=== PATIENT | female | born 1955 | race Caucasian/White ===

== ENCOUNTER 2017-05-06 04:19 | Inpatient (IN) | payer MEDICARE, OTHER ==
[~2017-05-06] VITALS: Ht 167.6 cm; Wt 52.0 kg
[~2017-05-06 04:19] MED LIST: ALEVE220 MG PO; ATIVAN1 MG PO; DULCOLAX5 MG PO; IMURAN50 MG PO; LOMOTIL TABLET1 EACH PO; MAPAP325 MG PO; OXYCODON-ACETA1 EAC2 PO; ULTRAM50 MG PO; ZOFRAN8 MG PO
--- NOTE | 2017-05-06 07:15 | NUR ---
RECIEVED PT PER STRETCHER DIRECT ADMISSION FROM [facility]. PT IS AWAKE ALERT. STATES IS HAVING SOME ABD PAIN. ALSO HAS TAILBONE AND BACK PAIN FROM RECENT FALL. HAS PACKING IN PLACE L NARE. UP TO BSC TO VOID. LAB DRAWN FROM [facility] IS ACCESSED, AMBULANCE CREW REPORTS THAT SHE HAS NEVER BEEN ABLE TO DRAW BLOOD FROM IT. REPORT TO DAY SHIFT.
--- NOTE | 2017-05-06 07:19 | NUR ---
LIUDMILA NY WAS CALLED AT 0640 TO REPORT VS.
--- NOTE | 2017-05-06 08:00 | NUR ---
ADMISSION COMPLETE. TALKED WITH PATIENT AND PATIENT FAMILY ABOUT PLAN OF CARE. IS UNDERSTANDING. IVF INFUSING AT 125 ML/HR. DENEIS ABD PAIN, C/O MILD LOWER BACK PAIN/COCCYX PAIN. DENIES NEED FOR PAIN MEDICATION. IN ROOM. NO ACTIVE BLEEDING NOTED FROM NOSE. LEFT NARE IS PACKED. DR. NY HAS SEEN PATIENT.
--- NOTE | 2017-05-06 09:20 | NUR ---
PERCOCET 1 GIVEN FOR BACK/COCCYX PAIN. IS SOMEWHAT TEARY.
--- NOTE | 2017-05-06 10:00 | NUR ---
ATTEMPTED TO DRAW BLOOD FROM PORT-A-CATH. UNABLE. PATIENT STATES THAT MOST OF THE TIME BLOOD IS NOT ABLE TO DRAWN FROM THIS PORT, BUT STILL IS USED. T&C DRAWN PER BALL ASSEMBLER. STATES PAIN IS LESS AFTER PERCOCET GIVEN. PATIENT AND AWARE OF SURGICAL CONSULT. NO ACTIVE BLEEDING NOTED. DENIES NEED FOR ATIVAN.
--- NOTE | 2017-05-06 11:45 | NUR ---
DR. TEIXEIRA HERE TO SEE PATIENT. [id number] RECIEVED.
--- NOTE | 2017-05-06 12:00 | NUR ---
ASSESSMENT DONE. DENIES NEED FOR REPEAT PAIN MEDICATION. RESTFUL. WILL HAVE BOWEL PREP THIS AFTERNOON.
--- NOTE | 2017-05-06 13:12 | NUR ---
SURGICAL PERMIT SIGNED BY .
--- NOTE | 2017-05-06 13:50 | NUR ---
BOWEL PREP STARTED
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
--- NOTE | 2017-05-06 16:00 | NUR ---
ASSESSMENT DONE. IS VERY WEAK.
--- NOTE | 2017-05-06 16:16 | NUR ---
PERCOCET GIVEN FOR C/O LOWER BACK /COCCYX PAIN.
--- NOTE | 2017-05-06 16:25 | NUR ---
HAD EMESIS OF 150 YELLOW CONTENTS, PILL NOTED IN EMESIS.
--- NOTE | 2017-05-06 16:30 | NUR ---
ZOFRAN 4 MG IV GIVEN FOR NAUSEA.
--- NOTE | 2017-05-06 16:31 | NUR ---
ATIVAN 0.5 MG IV GIVEN.
--- NOTE | 2017-05-06 17:00 | NUR ---
RESTFUL AFTER ATIVAN
--- NOTE | 2017-05-06 17:45 | NUR ---
DR. TEIXEIRA UPDATED ON PATIENT, IS AWARE PATIENT IS NOT TAKING BOWEL PREP WELL. NO FUTHER ORDERS. DR CRUZ HERE TO SEE PATIENT.
--- NOTE | 2017-05-06 20:00 | NUR ---
DOZING, AWAKENS EASILY. IS PAINFUL TAILBONE AREA. ON BED FRAGOSO TO VOID AND PASS SOME CLOTS. PT HAS DIFFICULTY MOVING DUE TO PAIN
--- NOTE | 2017-05-06 20:52 | NUR ---
DR NY CALLED RE TEMP AND PT CONDITION ORDERS RECIEVED.
--- NOTE | 2017-05-06 20:56 | CONS ---
[facility] [address] [place], [place] [address] Signed DATE OF CONSULTATION: 05/06/2017 CHIEF COMPLAINT: Coffee-ground emesis and bright red blood per rectum. HISTORY OF PRESENT ILLNESS: Karen is a 62-year-old female, who presented earlier this year with pain in her upper abdomen. X-rays revealed metastatic disease to both sides of her liver and a lesion in the right colon. She ended up with a colonoscopy with Dr. Teague. This confirmed a colon cancer in the right colon. She then underwent a right colectomy in August 2016 with placement of a Port-A-Cath. She did well after the surgery and she has been on our chemotherapy. She mentioned a PET scan earlier in the month that seemed to suggest that her liver mets had shrunk quite a bit with her chemotherapy. She ended up going to [facility] yesterday with a bloody nose. She underwent packing and that improved. Whether or not she had actually a coffee-ground emesis, is hard to know. She told me she was trying not to swallow all that blood. She has also had some bright red blood per rectum. Consequently, she was transferred up to our hospital service. I was asked to see Karen environmental technical officer as a general surgeon environmental technical officer. In the meantime, she has been in our ICU and seems to be doing well. PAST MEDICAL HISTORY: Colon cancer in August 2016 with liver mets, myasthenia gravis, T12 compression fracture from a fall several weeks ago. PAST SURGICAL HISTORY: A right colectomy in [address] Teague along with a Port-A-Cath placement in the left subclavian vein and a prior cholecystectomy. SOCIAL HISTORY: She does not smoke or drink to my knowledge. Her is Norberto at [phone]. Their son, Thaddeus, lives with him at [phone] with the 2 grand children. They also have a son, Yan. PRIMARY CARE PROVIDER: Aftab Saenz MD MEDICAL ONCOLOGIST: Justo Hollins MD SURGEON: Domingo Teague MD CODE STATUS: Electronically Signed By: OLIVIA TEIXEIRA MD 05/06/172055 PATIENT NAME: KAREN DECKER CONSULTATION DATE OF : 55 PHYSICIAN: OLIVIA TEIXEIRA MD REPORT #: [id number] REPORT IS CONFIDENTIAL AND NOT TO BE RELEASED WITHOUT AUTHORIZATION [facility] [address] [place], [place] [address] Signed She is do not intubate and also a limited code. FAMILY HISTORY: Sister had ovarian cancer and a cousin has colon cancer. REVIEW OF SYSTEMS: She fell several weeks ago and suffered a T12 compression fracture. ALLERGIES: Morphine and doxycycline. MEDICATIONS: Aleve, tramadol, lorazepam, Zofran, Lomotil, Dulcolax, Percocet 7.5, and Tylenol. PHYSICAL EXAMINATION: VITAL SIGNS: Blood pressure is 115/66, heart rate is 107, respiratory rate 20, and temperature is 97.6. She is 99% on room air. She is 5 feet 6 inches. A 52 kg. GENERAL: Karen is a 62-year-old female, who appears elderly. HEENT: She clearly has a packing in her left naris with some dried blood around her nose and her lips. RESPIRATORY SYSTEM: Her lungs are generally clear to auscultation. HEART: Tachycardic. ABDOMEN: Soft and flat. There is no incisional hernia. I did not specifically feel for the liver or spleen. LABORATORIES: Her white blood cell count 17.3, hemoglobin 11.7, and neutrophils 86. Her BUN 17, creatinine 0.7, total bilirubin 1.3, AST 48, ALT 30, alkaline phosphatase 316, and her albumin is 2.2. RADIOGRAPHIC STUDIES: A CT scan of the abdomen and pelvis done at [facility] shows the previous elevation of the right hemidiaphragm, the left Port-A-Cath, the extensive bilateral liver mets, which seem to be worse. There was some irregularity in the bowel on the right side and looks like some infiltrative process in the right gutter in the fat. She has pelvic ascites and there was some irregularity in the sigmoid colon. ASSESSMENT AND PLAN: Karen is a 62-year-old female, who presents initially with epistaxis, but also possible coffee-ground emesis and also bright red blood per rectum. She has been admitted and hydrated on our internal medicine service. I have been asked to see her for both upper and lower endoscopy. I talked with Karen and her at length. She felt she could probably tolerate the bowel prep. She understood upper and lower endoscopy quite well. Electronically Signed By: OLIVIA TEIXEIRA MD 05/06/172055 PATIENT NAME: KAREN DECKER ANN CONSULTATION DATE OF : 55 PHYSICIAN: OLIVIA TEIXEIRA MD REPORT #: [id number] REPORT IS CONFIDENTIAL AND NOT TO BE RELEASED WITHOUT AUTHORIZATION [address] [address] Signed We will go ahead and get that scheduled for tomorrow. They have expressed understanding and agreed above with the plan. MD MERARI White/MODL /[id number] cc: MD Olivia Han MD John McBee, MD Russel J Nichols, MD Electronically Signed By: OLIVIA TEIXEIRA MD 05/06/172055 PATIENT NAME: KAREN DECKER CONSULTATION DATE OF : 55 PHYSICIAN: OLIVIA TEIXEIRA MD REPORT #: [id number] REPORT IS CONFIDENTIAL AND NOT TO BE RELEASED WITHOUT AUTHORIZATION
--- NOTE | 2017-05-06 22:11 | NUR ---
BLOOD CULTURES AND LAB DRAWN WITH SOME DIFFICULTY. PT WILL FALL ASLEEP SOON INTERVENTIONS DONE. WILL WAIT ON ADAN FOR NOW.
--- NOTE | 2017-05-06 22:28 | EKG ---
[facility] [address] [facility] [place] [address] Signed Normal sinus rhythm Nonspecific T wave abnormality Abnormal ECG When compared with ECG of 04-SEP-2016 06:05, Nonspecific T wave abnormality now evident in Anterior leads Confirmed by MELANIE NY MD ([id number]) on 05/06/2017 10:28:24 PM Electronically Signed By: MELANIE NY MD 05/06/17 2228 PATIENT NAME: RONALD DECKER ANN Electrocardiogram DATE OF : 55 PHYSICIAN: MELANIE NY MD REPORT #: [id number] REPORT IS CONFIDENTIAL AND NOT TO BE RELEASED WITHOUT AUTHORIZATION
--- NOTE | 2017-05-06 22:40 | NUR ---
AWAKE, IV R ARM INFILTRATED, DC'D. PT ASKING WHY WE ARE WAKING HER SO MUCH. EXPLAINED HAD ELEVATED TEMP AND WAS IN CCU REQUIRING MULT INTERVENTIONS. ADAN CATH INSERTED WITHOUT PROBLEM. RETURN DARK YELLOW URINE. BOLUS COMPLETED.
--- NOTE | 2017-05-07 00:50 | NUR ---
DR NY CALLED RE URINE OUTPUT. ORDER FOR 500ML BOLUS NS RECIEVED. AND WILL INC IVF TO 200ML/HR. PT SLEEPING OFF AND ON.
--- NOTE | 2017-05-07 04:40 | NUR ---
IN TO ASSESS PT. STATES NEED TO HAVE BM. ALREADY INC MOD AMT MELENA STOOL. DID HAVE MORE WHILE AWAITING LINEN CHANGE. GIVEN 0.5MG ATIVAN IV FOR REST AND ANXIETY.
--- NOTE | 2017-05-07 05:54 | NUR ---
LAB IN TO DRAW BLOOD, PT IS DIFFICULT DRAW. NO OTHER CHANGES.
--- NOTE | 2017-05-07 07:49 | NUR ---
05/07/17 0749 Coral Prince 0741-PATIENT ARRIVED TO PACU ON 8L OM O2 SAT 100% PATIENT REACTIVE OPENS EYES. ABDOMEN SOFT. SR/ST HR 99-102. PACKING TO LEFT NARE FROM PREVIOUS NOSE BLEED. ADAN CATHETER IN PLACE.
--- NOTE | 2017-05-07 08:22 | NUR ---
return to ccu. IS AWAKE, EXTREMELY TIRED ASSESSMENT DONE.
--- NOTE | 2017-05-07 09:16 | NUR ---
Assisted patient with drinking hot tea.
--- NOTE | 2017-05-07 11:00 | NUR ---
PERCOCET GIVEN FOR PAIN IN LOWER BACK.
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
--- NOTE | 2017-05-07 16:00 | NUR ---
TALKED WITH PATIENT REGARDING THE DISCUSSION DR NY HAD EARLIER. IS ASKING QUESTIONS ABOUT HOW MUCH LONGER HE HAS TO LIVE.
--- NOTE | 2017-05-07 17:21 | NUR ---
nurse in room
--- NOTE | 2017-05-07 17:28 | NUR ---
Patient only had 2/3 of a cup of ice cream for dinner. But patient is tolerating fluids well.
--- NOTE | 2017-05-07 18:38 | NUR ---
PATIENT IN BED SLEEPING
--- NOTE | 2017-05-07 21:18 | NUR ---
AWAKENED FOR ASSESSMENT. IS DISORIENTED TO TIME, AND HAS DIFFICULTY REMEMBERING EVEN WHEN REORIENTED. T100.6, GIVEN 500MG TYLENOL PO. PT JUST WANTS TO GO BACK TO SLEEP. OFFERED PAIN MED FOR COCCYX PAIN AND PT DECLINED.
--- NOTE | 2017-05-07 22:47 | NUR ---
UP TO BSC, INC OF LIQUID MELENA STOOL WITH CLOTS. DID WELL GETTING OOB BUT BECAME WEAK. FEELING WARMER T 98.5
--- NOTE | 2017-05-08 01:20 | NUR ---
AWAKE, STATES PAIN IN TAILBONE IS BETTER. STATES FREQ HAS DIFFICULTY SLEEPING AT NIGHT. OFFERED ATIVAN, PT DECLINED. PT ASKED IF TEMP GOING UP EARLIER WAS RELATED TO MENOPAUSE, EXPLAINED THAT IT WAS NOT, THAT HAD AN INFECTIOUS PROCESS GOING ON AND THAT TEMPS FREQ GO UP IN THE EVENING DUE TO CIRCADIAN RHYTHM. ALSO EXPLAINED THAT TEMPS DO NOT GO UP WITH HOT FLASHES. TOLD PT TO CALL IF CONT HAS TROUBLE SLEEPING.
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
--- NOTE | 2017-05-08 06:11 | NUR ---
AWAKE, ON BED FRAGOSO FOR SCANT MELANA STOOL. DID NOT WANT TO GET UP TO COMMODE. GIVEN HOT TEA.
--- NOTE | 2017-05-08 09:11 | NUR ---
PT SITTING UP IN BED, HAS VERY FLAT AFFECT THIS AM. DENIES TASTING BLOOD OR THE FEELING OF IT GOING DOWN THE BACK OF HER THROAT. NOSE PACKING REMAINS INPLACE AT THIS TIME. PT ATE BKF, SHE IS COOPERATIVE WITH HOSPITAL ROUTINE.
--- NOTE | 2017-05-08 10:16 | NUR ---
PT REFUSING TO HAVE A BATH AT THIS TIME. FAMILY AT BEDSIDE.
--- NOTE | 2017-05-08 12:02 | NUR ---
PT CONTIOUES TO SIT UP IN BED AND IS CURRENTLY EATING LUNCH. FAMILY HAS LEFT AT THIS TIME.
--- NOTE | 2017-05-08 13:12 | NUR ---
FAMILY REMAINS AT THE BEDSIDE AT THIS TIME. PT DIENIES AND C/O'S AT THIS TIME.
--- NOTE | 2017-05-08 13:53 | NUR ---
PT ADAN CATHETER DC'D AT THIS TIME, REPORT CALLED ALSO TO M/S UNIT TO GIACOMO ALL QUESTION ANSWERED. PT TRANSPORTED VIA BED TO ROOM 115 WITH ALL BELONGING AND FAMILY WENT WITH PT.
--- NOTE | 2017-05-08 13:59 | NUR ---
PT TO FLOOR WITH FAMILY AND FRUIT FARMER ON BED. PT STATES HER BACK HURTS BUT PREFERS TO NOT TAKE ANYTHING FOR IT IT MAKES HER DROWSY.
--- NOTE | 2017-05-08 15:28 | NUR ---
PATIENT STATES "NOTHING TASTES GOOD." SHE LIKES CARNATION INSTANT BREAKFAST MIXED WITH MILK. SHE DRINKS ONE OF THOSE A DAY AT HOME. WE DON'T HAVE THAT HERE SO I ENCOURAGED HER FAMILY TO BRING SOME IN SO SHE CAN DRINK IT HERE. I OFFERED A HANDOUT ON TIPS FOR INCREASING CALORIES AND PROTEIN. SHE SAID SHE WOULD LIKE THE HANDOUT WHEN SHE GOES HOME. WILL CONTINUE TO FOLLOW WHILE HERE.
--- NOTE | 2017-05-08 18:36 | NUR ---
CHARGE AND MASTER NAVAL PARACHUTIST REPORTED LARGE RED BOWEL MOVEMENT ON FLOOR OF ROOM. THEY CLEANED IT UP AND RETURNED PT TO BED. ALERTED DR NY TO .
--- NOTE | 2017-05-08 18:43 | NUR ---
PT TRANSFERED FOR CCU THIS EVENING. PT SLEPT MOST OF TIME. HAD LARGE RED BM ON FLOOR. AWARE. PT DECLINES PAIN MEDS, THOUGH APPEARS TO BE IN PAIN. BED FRAGOSO FOR WEAKNESS.
--- NOTE | 2017-05-08 20:00 | NUR ---
RECEIVED REPORT AT 1900. FOUND PT IN BED SLEEPING.
--- NOTE | 2017-05-08 20:42 | NUR ---
Patient in bed, states she does not need anything. Whiteboard updated, room tidied.
--- NOTE | 2017-05-08 22:00 | NUR ---
V/S ARE WDL, PT DENIED PAIN AT TIME OF ASSESSMENT, SKIN IS JAUNDICE IN APPEARANCE, ABD IS DISTENDED AND PAINFUL TO TOUCH. ALL QUADRANTS ARE HYPOACTIVE, RLL HAS CRACKLES, ALL OTHER LOBES ARE CLEAR. PT IS VERY WEAK OVERALL.
--- NOTE | 2017-05-09 00:10 | NUR ---
PT IS RESTING IN BED AT THIS TIME.
--- NOTE | 2017-05-09 00:59 | NUR ---
SINCE START OF SHIFT PT ONLY HAD ONE URINE INCONNTINENT EPISODE SINCE START OF SHIFT. BLADDER SCAN SHOWED 259ML. WILL CALL
--- NOTE | 2017-05-09 01:07 | NUR ---
MD NY WAS CALLED IN REGARDS TO LOW URINE OUTPUT. NO CHANGES WERE ORDERED. WILL CONTINUE TO MONITOR.
--- NOTE | 2017-05-09 02:42 | NUR ---
THERE IS NO CHANGE IN THIS PT. URINE OUTPUT IS STILL NOT ADEQUATE, PT DENIES PAIN AT THIS TIME. NO NEW CONCERNS.
--- NOTE | 2017-05-09 03:34 | NUR ---
PATIENT IN BED ASLEEP. DOING WELL.
--- NOTE | 2017-05-09 05:14 | NUR ---
PT AT THIS TIME APPEARS TO BE SLEEPING
--- NOTE | 2017-05-09 05:16 | NUR ---
AT START OF SHIFT PT HAD A TEMP OF 100.2. PT AT THIS TIME IS AFEBRILE, PT ALSO HAS RECEIVE 1 TAB PERCOCET X1 PER ORDER. OTHER V/S ARE WDL SO FAR. URINE OUTPUT HAS BEEN INADEQUATE, MD NY IS AWARE. PT IS VERY WEAK OVERALL.
--- NOTE | 2017-05-09 06:05 | NUR ---
PT HAS +2 EDEMA ON HER LEFT ARM. PORT ON HER LEFT CHEST SEEMS TO BE WORKING FINE, SUPERVISIOR GEOVANI LOOKED AT IT WELL. IV FLUIDS ARE STILL RUNNING.
--- NOTE | 2017-05-09 06:10 | NUR ---
pt up to bsc with 2 person assist, did well with this. pt voided, urine was unmeasurable due to mixing with liquid bm/blood. attends in place. pt back in bed. fresh water at bedside. call light in reach.
--- NOTE | 2017-05-09 07:05 | NUR ---
BEDSIDE REPORT RECEIVED FROM ABIGAIL GUO. PT AWAKE IN BED, TOOK PT'S BREAKFAST ORDER. PT HAS IVF INFUSING. LEFT ARM IS ELEVATED ON PILLOW. PT HAS NO COMPLAINT OF PAIN AT THIS TIME, NO ADDITIONAL REQUESTS. WILL CONTINUE TO MONITOR.
--- NOTE | 2017-05-09 07:55 | NUR ---
IVF STOPPED AT THIS TIME. EXTENSIVE SWELLING IN LEFT ARM WHEN COMPARED BILATERALLY. PT REPOSITIONED IN BED WITH HELP OF IVY IBANEZ. PT TRAY TABLE ARRANGED FOR PT TO EAT BREAKFAST. CALL LIGHT IN REACH.
--- NOTE | 2017-05-09 08:10 | NUR ---
DR. NY NOTIFIED OF SWELLING IN LEFT ARM, LOW URINE OUTPUT. DR. NY STATES THAT HE IS AWARE, WILL BE IN TO EVALUATE PT.
--- NOTE | 2017-05-09 08:43 | NUR ---
DR NY WAS IN ROOM TO SEE AND EVALUATE PATIENT. PLAN FOR ULTRA SOUND OF HER LEFT ARM. DR NY ALSO REMOVED PACKING ON THE LEFT NOSTRIL. PATIENT RESTING IN BED AT THIS TIME. NO COMPLAINT. CALL LIGHT AND PERSONAL BELONGING WITHIN REACH.
--- NOTE | 2017-05-09 09:02 | NUR ---
PT AWAKE IN BED. EMPTYED GARBAGE. PICKED UP ROOM. TOOK BEEF BROTH.
--- NOTE | 2017-05-09 09:24 | NUR ---
IMGAGING IN PT ROOM FOR US.
--- NOTE | 2017-05-09 10:11 | NUR ---
PT AWAKE IN BED. FRESH ICE WATER AND COFFEE. CA LIGHT IN REACH.
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
[2017-05-09] MEDS ORDERED: LEVAQUIN750 MG PO (10:34)
[2017-05-09] MEDS ORDERED: OMEPRAZOLE20 MG PO (10:36)
--- NOTE | 2017-05-09 11:25 | NUR ---
INFORMED DR. NY OF PT CONCERN WITH HAVING NOT WALKED. DR. NY ORDERED PHYSICAL THERAPY CONSULT. PT INFORMED OF CONSULT, STILL EXPRESSING CONCERN WITH DISCHARGE TODAY. WILL CONTINUE TO MONITOR. PT FAMILY NOW IN ROOM, CALL LIGHT IN REACH. PT SITTING UP IN BED.
--- NOTE | 2017-05-09 12:10 | NUR ---
IVF STOPPED, PORT FLUSHED WITH 10 ML NS, 5ML HEPARIN FLUSH, LINE HEP LOCKED. PT SITTING UP IN BED, PLAN TO WORK WITH PHYSICAL THERAPY. PT ATE 50% OF LUNCH, CLEARED LUNCH TRAY. PT DOES NOT NEED TO VOID AT THIS TIME. PT HAS CALL LIGHT, WILL CONTINUE TO MONITOR.
--- NOTE | 2017-05-09 12:25 | NUR ---
ASSISTED PT TO RESTROOM FOR VOID WITH 2 RN STANDBY ASSIST. PT NOT STEADY ON FEET, AMBULATES USING SIDE RAILS, BATHROOM SINK. PT HAD 100 ML URINE OUTPUT, CLEAR YELLOW URINE, NOT CONCENTRATED. PT CONTINUES TO HAVE BLOODY ANAL DISCHARGE. PT STATES SHE IS HAVING PAIN IN LOWER BACK, REFUSES PRN PAIN MEDICATION. GAVE PT HOT PACK FOR BACK, WARM BLANKET, NO ADDITIONAL REQUESTS. CALL LIGHT IN REACH. IS IN ROOM.
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
--- NOTE | 2017-05-09 13:16 | NUR ---
DR. NY AND GENERAL UTILITY WORKER TONYA IN PT ROOM TO DISCUSS PLAN TO SWITCH TO SWING BED. QUESTIONS ANSWERED.
--- NOTE | 2017-05-14 10:22 | OR ---
[facility] [address], [place] [address] Signed DATE OF OPERATION: 05/07/2017 SURGEON: Olivia Teixeira MD PREOPERATIVE DIAGNOSES: 1. Coffee ground emesis. 2. Epistaxis. 3. Stage IV colon cancer. POSTOPERATIVE DIAGNOSIS: Diffuse superficial lyio-uv-rppnejao gastritis. PROCEDURE: EGD with CLOtest and biopsies of the antrum. FINDINGS: Karen had no evidence of hiatal hernia. She did have diffuse superficial lohm-nk-tsaosnoq gastritis. There was no active bleeding at this time. No obvious ulcerations. INDICATIONS: Karen is a 62-year-old female who was diagnosed with stage IV colon cancer in August of this year. She underwent her right colectomy with Dr. Teague. She has her owrw-l-jwbapqnh placed and she has been receiving her chemotherapy with Dr. Justo Hollins. She told me today she has been doing well and seems to be responding to the chemo. However, she developed epistaxis and had to go to [facility] near her home. Packing was placed and she was observed. She then had some coffee-grounds emesis, but also had some blood per rectum. Consequently, she was transferred up to [facility] under our Internal Medicine Service. 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 I met with Karen and her in the ICU. Karen felt that she might be able to tolerate the bowel prep. We gave her our standard MiraLAX and Gatorade, but that did not go very well, so we abandoned the bowel prep and decided we would just proceed with her upper endoscopy. Karen and her are very aware of endoscopy. They understand the nature of the test along with its risks including, but not limited to gas, bloating, crampy abdominal pain, bleeding, perforation, requiring surgery and missed diagnosis. In addition, we thought we would have an anesthesia provider with this, but since it was only the upper endoscopy, we decided we would do this with IV conscious sedation with our nursing staff. Karen had expressed understanding and wished to proceed. Electronically Signed By: OLIVIA TEIXEIRA MD 05/14/17 1022 PATIENT NAME: KAREN DECKER OPERATIVE REPORT DATE OF : 55 PHYSICIAN: OLIVIA TEIXEIRA MD REPORT #: [id number] REPORT IS CONFIDENTIAL AND NOT TO BE RELEASED WITHOUT AUTHORIZATION [facility] [address], [place] [address] Signed PROCEDURE NOTE: Karen was taken into our endoscopy suite and placed in the supine semi-recumbent position. The posterior oropharynx was anesthetized with Hurricaine spray. A bite block was utilized for the case. She was given 3 mg of Versed and 100 mcg of fentanyl to cover the case. The adult gastroscope was introduced and advanced quite readily under direct visualization of the camera out into the third portion of the duodenum. The duodenum and pyloric channel were unremarkable. The stomach showed diffuse patchy superficial erythematous changes consistent with gastritis. We saw no bleeding, there was no fresh blood, there was no old blood, and there were no ulcerations. She had a couple of areas in the distal antrum where the mucosa seemed to be healing, although they are quite shallow. Upon retroflexion of the scope, we saw no evidence of a hiatal hernia. There were no gastric or esophageal varices. The scope was withdrawn up through the area of the GE junction, which was compiled without stricture. There was a little irritation around the GE junction from the vomiting, but no obvious Smith's esophagus or distal esophagitis. The middle and upper esophagus were unremarkable. After this, the gas was suctioned out and the gastroscope was removed. Karen tolerated the procedure quite well. RECOMMENDATIONS: Karen will be returned to the ICU under the Internal Medicine Service. We will resume her preoperative orders along with a clear liquid diet. Olivia Teixeira MD ALB/MODL /[id number] cc: MD Aftab Han MD Electronically Signed By: OLIVIA TEIXEIRA MD 05/14/17 1022 PATIENT NAME: KAREN DECKER OPERATIVE REPORT DATE OF : 55 PHYSICIAN: OLIVIA TEIXEIRA MD REPORT #: [id number] REPORT IS CONFIDENTIAL AND NOT TO BE RELEASED WITHOUT AUTHORIZATION [facility] [address] [facility] [place], [place] [address] Signed MD Domingo White MD Electronically Signed By: OLIVIA TEIXEIRA MD 05/14/17 1022 PATIENT NAME: KAREN DECKER ANN OPERATIVE REPORT DATE OF : 55 PHYSICIAN: OLIVIA TEIXEIRA MD REPORT #: [id number] REPORT IS CONFIDENTIAL AND NOT TO BE RELEASED WITHOUT AUTHORIZATION
[2017-05-15] MEDS ORDERED: ALEVE220 M1 PO (09:36)
[2017-05-15] MEDS ORDERED: GENTLE LAXATIVE5 M1 PO (09:36)
[2017-05-15] MEDS ORDERED: PERCOCET 5-3251 EACH PO (09:37)
[2017-05-15] MEDS ORDERED: STOOL SOFTENER100 MG PO (09:38)
[2017-05-29] MEDS ORDERED: AZATHIOPRINE50 MG (09:47)
[2017-05-29] MEDS ORDERED: ULTRAM50 MG PO (09:47)
== END 2017-05-09 13:15 | disposition swing bed (61) | DRG 377 ==
LOC: CCU 04:19 → MS 05-08 13:45
PROVIDERS: Colon & Rectal Surgery; ADMIT Internal Medicine
PROC: 0DB78ZX Excision of Stomach, Pylorus, Via Natural or Artificial Opening Endoscopic, Diagnostic (ICD-10-PCS; principal; 2017-05-07 06:45)
DX: K92.2 Gastrointestinal hemorrhage, unspecified (principal); J15.6 Pneumonia due to other Gram-negative bacteria; C78.5 Secondary malignant neoplasm of large intestine and rectum; C78.7 Secondary malignant neoplasm of liver and intrahepatic bile duct; K76.6 Portal hypertension; R18.8 Other ascites; K29.50 Unspecified chronic gastritis without bleeding; R04.0 Epistaxis
CPT/HCPCS: 36415; 51702; 80053; 81001; 82378; 83605; 83735; 85025; 86677; 86850; 86900; 86901; 86920; 87040; 88305; 93005; 93010; 93971; 99152; 99153; J1956; J2060; J2250; J2405; J2543; J3010; J3475; J7030; J7040; J7042; J7120

== ENCOUNTER 2017-05-09 13:15 | Inpatient (IN) | payer MEDICARE, OTHER ==
[~2017-05-09 13:15] MED LIST changes: +LEVAQUIN750 MG PO; +OMEPRAZOLE20 MG PO
--- NOTE | 2017-05-09 14:14 | NUR ---
PT COMPLAINING OF 5/10 PAIN IN BACK. ADMINISTERED 650 MG ACETAMINOPHEN. PT REFUSES HOT PAD AT THIS TIME. IVY OSBORNE IN PT ROOM TAKING VITALS. PT HAS NO ADDITIONAL REQUESTS. WILL CONTINUE TO MONITOR.
--- NOTE | 2017-05-09 15:29 | NUR ---
PT AWAKE IN BED. STOCKED ROOM. EMPTYED GARBAGE.
--- NOTE | 2017-05-09 16:31 | NUR ---
PATIENT TOOK A SHOWER. SET UP IN THE CHAIR FOR A LITTLE BIT NOW LAYING IN BED. CLEANED UP ROOM.
--- NOTE | 2017-05-09 17:00 | NUR ---
PT RESTING IN BED, PT'S LUNGS DIMINISHED IN RIGHT LOWER LOBE. PT'S RADIAL AND DORSALIS PEDAL PULSES FAINT BILATERALLY. PT CAP REFILL <3 BILATERALLY UPPER AND LOWER EXTREMITIES. PT CONTINUES TO HAVE SWELLING IN LEFT ARM. ARM IS ELEVATED ON PILLOW. PT HAS DINNER IN ROOM. NO ADDITIONAL REQUESTS AT THIS TIME, CALL LIGHT IN REACH.
--- NOTE | 2017-05-09 17:05 | NUR ---
PT SHOWER COMPLETED BY IVY OSBORNE PT SLEEPING AT THIS TIME. WILL CONTINUE TO CHIP PT.
--- NOTE | 2017-05-09 20:00 | NUR ---
RECEIVED REPORT AT 1900. FOUND PT IN BED SLEEPING.
--- NOTE | 2017-05-09 20:30 | NUR ---
PT STATED THAT SHE HAS NUMBNESS ANG TINGLING IN BOTH ARMS AND LEGS EVER SINCE SHE STARTED CHEMO THERAPY. SHE WAS WONDERING IF THERE ARE ANY MEDS SHE COULD HAVE. I WILL TALK TO MD NY IN THE AM OR RELATE IT TO DAYSHIFT.
--- NOTE | 2017-05-09 21:26 | NUR ---
ROUNDED ON PATIENT CHARGE. ALL QUESTIONS ANSWERED. NO CONCERNS OR COMPLAINTS AT THIS TIME. CALL LIGHT IN REACH. BED ALARM IN PLACE
--- NOTE | 2017-05-09 21:56 | NUR ---
PATIENT REFUSING TO WEAR SCD'S WHILE SHE IS SLEEPING
--- NOTE | 2017-05-09 22:02 | NUR ---
PT HAS A HR OF 102, OTHER V/S ARE WDL, PT DENIED PAIN OR ANY OTHER DISCOMFORTS AT THIS TIME. ALL LOBES ARE CLEAR, LEFT ARM STILL HAS NON-PITTING EDEMA +2 WHICH IS NOT HURTING PT, ABD HAS NORMAL BOWEL TONES PRESENT, PT REFUSED SENNA THIS EVENING. ABD IS MODERATLY DISTENDED BUT SOFT TO TOUCH, HER SKIN OVERALL IS JAUNDICE, THERE IS +1 NON-PTTING EDEMA BILATERALLY ON HER FEET WELL. PT OVERALL SEEMS STRONGER AND STATED THAT SHE IS FEELING BETTER TODAY.
--- NOTE | 2017-05-10 00:53 | NUR ---
PT IS AWAKE IN BED. SHE IS FEELING ANXIOUS. PT STATED THAT A LOT OF THOUGHTS ARE RUNNING THROUGH HER HEAD. 1MG OF ATIVAN GIVEN PER ORDER. I ASSISTED PT TO BSC. PT HAD A SMALL BLOODY BM WITH ABOUT 100ML OF URINE. THERE WAS ALSO SOME URINE IN HER BRIEF. PT IS BACK IN BED NOW.
--- NOTE | 2017-05-10 02:54 | NUR ---
PT IS SLEEPING AT THIS TIME
--- NOTE | 2017-05-10 06:02 | NUR ---
AT START OF SHIFT PT HAD A TEMP OF 99.0. PT ALSO HAD SOME PROBLEMS FALLING ASLEEP BECAUSE SHE HAD A LOT ON HER MIND SHE STATED 1MG PO ATIVAN WAS GIVEN. OTHER V/S WERE WDL, TEMP WAS TAKEN AROUND 0600 AND IT WAS WDL. LEFT ARM AT THIS TIME HAS LESS EDEMA THAN YESTERDAY. HER LEFR HAND IS BACK TO BASELINE AND SO IS HER WRIST. PT REFUSED SCD'S AND JUSTUS HOSE THIS SHIFT. PT ALSO HAS SOME NUMBNESS AND TINGLING IN HER EXTREMETIES SINCE SHE STARTED CHEMO THERAPY AND WOULD LIKE TO KNOW IF SHE COULD HAVE SOMETHING FOR THAT. ABD IS STILL MODERATELY DISTENDED AND SOFT TO TOUCH, BOWEL TONES ARE PRESENT. BLOODY STOOLS X2 SO FAR.
--- NOTE | 2017-05-10 07:20 | NUR ---
BEDSIDE REPORT RECEIVED FROM ABIGAIL GUO. PT AWAKE IN BED. PT HAS ORDERED BREAKFAST, NO ADDITIONAL REQUESTS AT THIS TIME. PT HAS CALL LIGHT.
--- NOTE | 2017-05-10 08:57 | NUR ---
ASSISTED PT IN RESTROOM. PT CONTINUES TO HAVE BLOODY DISCHARGE FROM RECTUM, PT HAD SMALL VOID, DIARRHEA IN ATTENDS. ABIGAIL GARCIA ASSISTED PT TO CHANGE ATTENDS. PT AMBULATED BACK TO BED WITH FWW AND SBA. GAIT STEADY WITH WALKER. PT COMPLAINING OF 5/10 BACK PAIN, ADMINISTERED PRN OXYCODONE PO. PT SITTING UP IN BED WATCHING TV, NO ADDITIONAL REQUESTS AT THIS TIME.
--- NOTE | 2017-05-10 09:07 | NUR ---
PATIENT REFUSED SHOWER TODAY. DID AM CARE BRUSHED HER TEETH AND WASHED HER FACE.
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
--- NOTE | 2017-05-10 11:42 | NUR ---
PT STATES PAIN AT THIS TIME IS 2/10 IN BACK, REFUSES ICE OR HEAT PACK FOR BACK. PT IS UP IN CHAIR, FAMILY PRESENT IN ROOM. PT HAS SMALL SKIN TEAR ON CHEST FROM TAPE REMOVAL. SITE IS NOT BLEEDING. APPLIED NON-ADHERANT DRESSING WITH PAPER TAPE TO CHEST. FORENSIC MANAGER TONYA IN PT ROOM TO DISCUSS PLAN OF CARE. PT VERBALIZES ACCEPTANCE OF PLAN. BROUGHT PT CRACKERS FOR SOUP. CALL LIGHT IN LAP.
--- NOTE | 2017-05-10 14:00 | NUR ---
PT SLEEPING AT THIS TIME.
--- NOTE | 2017-05-10 14:46 | NUR ---
PT ASSESSMENT COMPLETE. PT LUNGS CLEAR THROUGHOUT ALL LOBES, BREATHING IS SHALLOW, NON-LABORED. PT HAS SMALL AMOUNT OF SEROUS DRAINAGE ON NON-ADHERANT DRESSING ON CHEST, SKIN TEAR. PT DENIES PAIN AT THIS TIME. PT'S LEFT ARM SWELLING IS IMPROVED, LESS SWOLLEN IN APPEARANCE FROM YESTERDAY, PT DENIES ANY PAIN, DISCOMFORT FROM ARM. PT REQUESTED GRAPE JUICE. NO ADDITIONAL REQUESTS AT THIS TIME. CALL LIGHT IN REACH.
--- NOTE | 2017-05-10 17:49 | NUR ---
CHECKED ON PT, PT SLEEPING AT THIS TIME.
--- NOTE | 2017-05-10 18:14 | NUR ---
PT WAS UP IN CHAIR FOR PART OF SHIFT, WORKED WITH PHYSICAL THERAPY TODAY. PT AMBULATING WELL WITH FWW AND SBA. PT CONTINUES TO BE WEAK OVERALL. PT RECEIVED OXYCODONE X 1 FOR PAIN IN BACK. PT HAS BEEN RESTING OFF AND ON AND HAS HAD FAMILY VISITING THIS SHIFT. PT APPETITE CONTINUES TO BE DIMINISHED, ENCOURAGED PT TO EAT THROUGHOUT SHIFT. URINE OUTPUT CONTINUES TO BE INSUFFICIENT.
--- NOTE | 2017-05-10 18:30 | NUR ---
ASSISTED PT TO RESTROOM WITH FWW AND SBA. DISCHARGE FROM RECTUM IS BROWN, DRIED BLOOD. PT BACK TO BED, DIETARY PHONED FOR WHOLE MILK FOR MEAL REPLACEMENT SHAKE. PT BACK IN BED, NO ADDITIONAL REQUESTS.
--- NOTE | 2017-05-10 20:00 | NUR ---
RECEIVED REPORT AT 1900. FOUND PT IN BED AWAKE AND IN GOOD SPIRITS.
--- NOTE | 2017-05-10 22:00 | NUR ---
HR WAS 110. PT THOUGHOUT THE DAY SEEMED TO HAVE BEEN TACHYCARDIC. WILL CONTINUE TO MONITOR. PT DENIES PAIN. BILATERAL UPPER LOBES ARE CLEAR, BILATERAL LOWER LOBES ARE CLEAR BUT DIMINISHED. NORMAL BOWEL TONES PRESENT IN ALL QUADRANTS, ABD IS MODERATLY DISTENDED AND A BIT FIRMER TO TOUCH THAN YESTERDAY. LEFT ARM EDEMA IS UNCHANGED BUT DOES NOT BOTHER PT IN ANY WAY. BILATERAL FOOT EDEMA IS MINIMAL.
--- NOTE | 2017-05-11 00:23 | NUR ---
PT IS SLEEPING AT THIS TIME.
--- NOTE | 2017-05-11 00:49 | NUR ---
ASSISTED PT TO BATHROOM WITH WALKER. PT HAD A BM WITHOUT ROBBY BLOOD PRESENT. PT VOIDED 125ML. 1MG ATIVAN WAS GIVEN SINCE PT STATED THAT SHE FEELS BETTER WITH IT DUE TO HER OCCASIONAL ANXIOUSNESS. PT IS BACK IN BED.
--- NOTE | 2017-05-11 03:13 | NUR ---
PT IS SLEEPING AT THIS TIME.
--- NOTE | 2017-05-11 04:19 | NUR ---
PT IS SLEEPING AT THIS TIME.
--- NOTE | 2017-05-11 05:15 | NUR ---
PT HAS DENIED PAIN ALL SHIFT. 1MG OF PO ATIVAN WAS GIVEN BECAUSE PT WAS A LITTLE ANXIOUS AND COULD NOT FALL ASLEEP. I ASSISTED PT TO BATHROOM AND PT HAD A BM X1 WITHOUT ROBBY BLOOD PRESENT. URINE OUTPUT IS STILL MARGINAL. PT AT START OF SHIFT WAS MILDLY TACHYCARDIC WHICH SEEMS NOT UNCOMMON FOR HER. ABD IS MODERATELY DISTENDED AND FIRM TO TOUCH. ABD SOUNDS ARE PRESENT. ALL LOBES ARE CLEAR. PT OVERALL SEEMS STRONGER TONIGHT. PT WOULD LIKE TO LEAVE FACILITY BEFORE SATURDAY SHE SAID. NO NEW CONCERNS FOR THIS PT SO FAR THIS SHIFT.
--- NOTE | 2017-05-11 07:13 | NUR ---
BEDSIDE REPORT RECEIVED FROM ABIGAIL GUO. PATIENT AWAKE IN BED, DENIES PAIN AT THIS TIME.
--- NOTE | 2017-05-11 07:38 | NUR ---
patient was going to get ready, but the told the nurse and i that she wanted to wait for her to get here, and she will lay in bed until he comes.
--- NOTE | 2017-05-11 08:10 | NUR ---
PATIENT ASSISTED TO BATHROOM WITH FWW. DENIES DIZZINESS UPON RISING. PATIENT WALKED STEADILY WITH FWW. ASSISTED PATIENT BACK TO BED. NO APPARENT DISTRESS.
--- NOTE | 2017-05-11 10:18 | NUR ---
PATIENT UP TO CHAIR. REPORTS NO PAIN AT THIS TIME. SHIFT ASSESSEMENT DONE.LUNGS CLEAR, POSITIVE BOWEL TONES. LEFT ARM STILL EDEMATOUS, AND REDNESS NOTED AT THE LEFT AC, PATIENT DENIES PAIN AT THE LEFT ARM. CATH A PORT AT THE LEFT CHEST. TRACE EDEMA NOTED ON JESSI LEGS.
--- NOTE | 2017-05-11 11:45 | NUR ---
PATIENT UP WALKING IN THE HALLWAY WITH PHYSICAL THERAPIST. TOLERATED WELL.
--- NOTE | 2017-05-11 14:49 | NUR ---
PATIENT RESTING IN BED, APPEARS TO BE SLEEPING. RR CINDI/UNLABORED. NO APPARENT DISTRESS NOTED. WILL CONTINUE TO MONITOR.
--- NOTE | 2017-05-11 16:25 | NUR ---
PATIENT RESTING IN BED, DENIES PAIN AT THIS TIME. AT BEDSIDE.
--- NOTE | 2017-05-11 18:15 | NUR ---
PATIENT HAD AN UNEVENTFUL DAY, WALKED WITH PHYSICAL THERAPIST ONCE. SWELLING IN THE LEFT ARM HAS DECREASED SOME. PATIENT HAS BEEN UP TO BATHROOM MULTIPLE TIME THROUGHOUT THE SHIFT. U/O ADEQUATE. PATIENT IS GETTING STRONGER. SPENT A COUPLE HOURS SITTING ON THE CHAIR. PORT ON LEFT CHEST WNL.
--- NOTE | 2017-05-11 19:25 | NUR ---
BEDSIDE SHIFT REPORT RECEIVED FROM ABIGAIL COVINGTON. PT IS CURRENTLY RESTING IN BED, REQUESTS PAIN MEDICATION WITH EVENING MEDS. WARM BLANKET PROVIDED PER REQUEST. DENIES FURTHER REQUESTS, CALL LIGHT IS WITHIN REACH.
--- NOTE | 2017-05-11 20:30 | NUR ---
ASSESSMENT COMPLETED. ALERT/ORIENTED. REPORTS 7/10 PAIN IN LEFT SIDE, PRN OXYCODONE ADMINISTERED. LUNGS CLEAR, DIM IN BASES, RA. HR REGULAR. BOWEL TONES ACTIVE, DENIES NAUSEA. PRN ATIVAN ADMINSTERED PER REQUEST TO HELP PT RELAX AND SLEEP. PORT TO LEFT CHEST ACCESSED, DRESSING INTACT, NO REDNESS OR SWELLING NOTED AT SITE. SKIN TEAR TO MIDCHEST HAS DRESSING IN PLACE, C/D/I. SKIN APPEARS FRAGILE, SCATTERED BRUISES NOTED ON ARMS. LEFT ARM IS SWOLLEN, 2+ EDEMA. PT DENIES FURTHER REQUESTS AT THIS TIME, CALL LIGHT IS WITHIN REACH.
--- NOTE | 2017-05-11 22:41 | NUR ---
PT SLEEPING, NO APPARENT DISTRESS. RESPIRATIONS EVEN AND UNLABORED, RR:16. WILL CONTINUE TO MONITOR.
--- NOTE | 2017-05-12 01:12 | NUR ---
PT APPEARS TO BE SLEEPING, NO APPARENT DISTRESS. RESPIRATIONS EVEN AND UNLABORED, RR:16. WILL CONTINUE TO MONITOR.
--- NOTE | 2017-05-12 04:40 | NUR ---
CHECKED IN ON PT WHO IS AWAKE AND WATCHING TV. SHE DENIES PAIN AT THIS TIME. DENIES NEEDS, WILL CONTINUE TO MONITOR.
--- NOTE | 2017-05-12 05:00 | NUR ---
SWING BED. UNEVENTFUL SHIFT. PT SLEPT MAJORITY OF NIGHT. RECEIVED PRN PAIN MEDICATION ONCE AT START OF SHIFT WHICH WORKED WELL FOR HER. LEFT ARM REMAINS SWOLLEN. NO BM DURING SHIFT. NO NAUSEA. PORT TO LEFT CHEST ACCESSED, APPEARS WNL. SBA WITH FWW. PO ABX: LEVAQUIN. LUNGS CLEAR, RA. DRESSING TO SKIN TEAR ON CHEST C/D/I.
--- NOTE | 2017-05-12 06:12 | NUR ---
PT UP TO BSC WITH SBA AND FWW. VOIDED AND THEN RETURNED TO BED.
--- NOTE | 2017-05-12 06:15 | NUR ---
PT UP TO BSC WITH SBA AND FWW. VOIDED AND THEN RETURNED TO BED. PT DENIES NEEDS FOR PAIN MEDICATION AT THIS TIME. DENIES NEEDS, WILL CONTINUE TO MONITOR.
--- NOTE | 2017-05-12 08:01 | NUR ---
REPORT RECEIVED FROM FARZANA. PATIENT RESTING IN BED. DENIES ANY COMPLAINTS AT THIS TIME. WILL CONTINUE TO MONITOR
--- NOTE | 2017-05-12 11:17 | NUR ---
PATIENT WAS ASSISTED TO BATHROOM TO VOID. PATIENT REQUESTED A DRY BATH WHICH WAS DONE. JOSE CARE DONE. GOWN CHANGED AND BED MADE. PATIENT ASSISTED BACK TO CHAIR. PHYSICAL THERAPIST IN ROOM AT THIS TIME.
--- NOTE | 2017-05-12 11:47 | NUR ---
DR NY IN ROOM TO SEE AND RE-EVALUATE PATIENT. PLAN TO D/C PATIENT HOME TODAY.
[2017-05-12] MEDS ORDERED: LEVAQUIN750 MG PO (11:52)
[2017-05-12] MEDS ORDERED: OMEPRAZOLE20 MG PO (11:53)
[2017-05-15] MEDS ORDERED: ALEVE220 M1 PO (09:36)
[2017-05-15] MEDS ORDERED: GENTLE LAXATIVE5 M1 PO (09:36)
[2017-05-15] MEDS ORDERED: PERCOCET 5-3251 EACH PO (09:37)
[2017-05-15] MEDS ORDERED: STOOL SOFTENER100 MG PO (09:38)
[2017-05-29] MEDS ORDERED: AZATHIOPRINE50 MG (09:47)
[2017-05-29] MEDS ORDERED: ULTRAM50 MG PO (09:47)
== END 2017-05-12 13:05 | disposition home or self-care (01) | DRG 947 ==
LOC: MS 13:15
PROVIDERS: ADMIT Internal Medicine
DX: R53.81 Other malaise (principal); J18.9 Pneumonia, unspecified organism; K92.2 Gastrointestinal hemorrhage, unspecified; C78.5 Secondary malignant neoplasm of large intestine and rectum; K76.6 Portal hypertension; R18.8 Other ascites; Z79.899 Other long term (current) drug therapy
CPT/HCPCS: 97035; 97110; 97116; 97140; 97163